=== PATIENT | female | born 1990 | race Caucasian/White ===

== ENCOUNTER 2019-09-10 23:13 | Inpatient (IN) | payer OTHER ==
[~2019-09-10] VITALS: Ht 175.3 cm; Wt 107.0 kg
[2019-09-11] MEDS ORDERED: IRON325 MG PO (00:16)
[2019-09-11] MEDS ORDERED: PRENATABS RX T1 EACH PO (00:16)
== END 2019-09-13 12:59 | disposition home or self-care (01) | DRG 807 ==
LOC: OB/GYN 23:13 → LDR 23:13 → OB/GYN 09-11 15:15
PROVIDERS: ADMIT Specialist
PROC: 4A1HXCZ Monitoring of Products of Conception, Cardiac Rate, External Approach (ICD-10-PCS; 2019-09-10)
PROC: 10E0XZZ Delivery of Products of Conception, External Approach (ICD-10-PCS; principal; 2019-09-11)
PROC: 0HQ9XZZ Repair Perineum Skin, External Approach (ICD-10-PCS; 2019-09-11)
PROC: 10907ZC Drainage of Amniotic Fluid, Therapeutic from Products of Conception, Via Natural or Artificial Opening (ICD-10-PCS; 2019-09-11)
PROC: 3E0P7VZ Introduction of Hormone into Female Reproductive, Via Natural or Artificial Opening (ICD-10-PCS; 2019-09-11)
PROC: 3E033VJ Introduction of Other Hormone into Peripheral Vein, Percutaneous Approach (ICD-10-PCS; 2019-09-11)
DX: O70.0 First degree perineal laceration during delivery (principal); Z37.0 Single live birth; Z3A.39 39 weeks gestation of pregnancy